=== PATIENT | male | born 1950 | race Caucasian/White ===

== ENCOUNTER → 2020-11-02 11:28 | Outpatient (CLI) | payer OTHER, SELFPAY ==
--- NOTE | ~2020-11-02 | XR_ITS ---
XR lumbar spine 2-3V 11/02/2020 11:43 Indication: Left-sided sciatica Procedure: 3 views lumbar spine Comparison: No prior studies for comparison. Findings: There is mild disc narrowing at L3-4, L4-5 and L5-S1. There is facet hypertrophy at L4-5 an d L5-S1. Slightly accentuated lumbar lordosis. Pedicles intact. Sacral foramen are symmetric. There i s diffuse atherosclerosis of the aorta. No acute fracture or traumatic malalignment. Impression: 1: Moderate lumbar spondylosis. Reviewed, dictated and finalized at location B. OGRAPHY TECHNICIAN Impression: 1: Moderate lumbar spondylosis.
== END ==
PROVIDERS: PCP Family Medicine; Visit Provider Nurse Practitioner Family
DX: M54.32 Sciatica, left side (principal); M47.816 Spondylosis without myelopathy or radiculopathy, lumbar region
CPT/HCPCS: 72100

== ENCOUNTER → 2020-11-29 07:26 | Outpatient (CLI) | payer OTHER, SELFPAY ==
--- NOTE | ~2020-11-29 | MR_ITS ---
EXAMINATION: MR lumbar spine wo [facility] EXAM DATE: 11/29/2020 08:19 INDICATION: Low back pain , left leg pain. TECHNIQUE: Multi-sequential, multiplanar MR images of the lumbar spine were obtained without contrast . Sagittal T1, T2, T2 fat saturation images. Axial T2 weighted images. There is no prior study for comparison. FINDINGS: The vertebral bodies are aligned in the AP dimension. Mild diffuse lumbar disc disease. The conus medullaris terminates at the T12 level and has normal signal intensity and morphology. There are no suspicious marrow signal abnormalities. Paraspinal soft tissue is unremarkable. Level by level evaluation: T12-L1: Disc does not extend beyond the endplate margin. Facet arthropathy: None. Neural foraminal stenosis: No stenosis. Central canal stenosis: No stenosis. L1-L2: Disc does not extend beyond the endplate margin. Facet arthropathy: None. Neural foraminal stenosis: No stenosis. Central canal stenosis: No stenosis. L2-L3: There is a mild diffuse disc bulge. Facet arthropathy: Mild. Neural foraminal stenosis: Mild bilateral. Central canal stenosis: Mild. L3-L4: There is a mild to moderate diffuse disc bulge. Facet arthropathy: Mild to moderate bilateral. Neural foraminal stenosis: Mild to moderate right, mild left. Central canal stenosis: Mild to moderate. L4-L5: There is a mild to moderate diffuse disc bulge, with annular fissure. Facet arthropathy: Mild to moderate bilateral. Neural foraminal stenosis: Mild to moderate right, moderate left. Central canal stenosis: Mild to moderate. L5-S1: There is a mild diffuse disc bulge with central annular fissure Facet arthropathy: Mild. Neural foraminal stenosis: No stenosis. Central canal stenosis: Mild. IMPRESSION: 1. Mild to moderate lumbar spondylosis. Reviewed, dictated and finalized at location B. ON EXPERT
== END ==
PROVIDERS: PCP Family Medicine; Visit Provider Orthopaedic Surgery
DX: M47.896 Other spondylosis, lumbar region (principal)
CPT/HCPCS: 72148

== ENCOUNTER 2021-07-09 15:39 | Outpatient (CLI) | payer OTHER, SELFPAY ==
--- NOTE | ~2021-07-09 | XR_ITS ---
EXAMINATION: XR hand LT 2V DATE: 07/09/2021 16:01 INDICATION: Left hand injury. TECHNIQUE: 2 views of left hand were obtained. COMPARISON: None. FINDINGS: There is an old healed fracture of the distal radius. 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 There is a transverse fracture of the scaphoid waist. There is mild osteoarthriti s of triscaphe joint and first carpometacarpal joint. There is mild osteoarthritis of first-third met acarpophalangeal joints and most of the interphalangeal joints. There are surgical clips in the dista l forearm. IMPRESSION: 1. Scaphoid waist fracture. Hypertrophy of bone in the area of the fracture suggests this finding may be chronic. 2. Mild polyarticular osteoarthritis. Reviewed, dictated and finalized at location A. IMPRESSION: 1. Scaphoid waist fracture. Hypertrophy of bone in the area of the fracture sug gests this finding may be chronic. 2. Mild polyarticular osteoarthritis.
== END 2021-07-09 15:40 | disposition home or self-care (01) ==
LOC: ANHIMG 15:43
PROVIDERS: PCP Family Medicine; Visit Provider Physician Assistant Medical
DX: S69.92XA Unspecified injury of left wrist, hand and finger(s), initial encounter (principal); S62.022A Displaced fracture of middle third of navicular [scaphoid] bone of left wrist, initial encounter for closed fracture; M19.042 Primary osteoarthritis, left hand
CPT/HCPCS: 73120

== ENCOUNTER 2021-09-27 09:45 | Outpatient (RCR) | payer OTHER, SELFPAY ==
[2021-08-14 15:42] VITALS: PULSE 64
[2021-08-15 14:35] LABS: Glucose Point of Care 170 mg/dl (65-105)
[2021-08-22 10:52] LABS: Glucose Point of Care 227 mg/dl (65-105)
[2021-08-29 12:12] LABS: Glucose Point of Care 81 mg/dl (65-105)
[2021-08-29 12:13] LABS: Glucose Point of Care 125 mg/dl (65-105)
[2021-09-06 11:23] LABS: Glucose Point of Care 179 mg/dl (65-105)
== END 2021-10-01 09:13 | disposition home or self-care (01) ==
LOC: ANHCPREHAB 09:45
PROVIDERS: PCP Family Medicine; Visit Provider Internal Medicine Cardiovascular Disease
DX: Z95.1 Presence of aortocoronary bypass graft (principal)
CPT/HCPCS: 93798

== ENCOUNTER 2022-09-09 13:00 | Emergency (ER) | payer OTHER, SELFPAY ==
--- NOTE | ~2022-09-09 | XR_ITS ---
Clinical Indication: Cough PA and lateral views of the chest: Comparison: None Findings: The lungs are clear, without evidence of focal consolidation or pleural effusion. Cardiome diastinal silhouette is within normal limits. Evidence of prior cardiac surgery. Bones and soft tissu es are unremarkable. Impression: Clear lungs. Reviewed, dictated and finalized at location . NICAL SERVICE REP Impression: Clear lungs.
[2022-09-09 13:12] VITALS: BP 164/60; PULSE 58; RESP 16; TEMP 35.9; O2SAT 99
--- NOTE | 2022-09-09 13:38 | ED.URI ---
HPI - URI/Sore Throat General Chief Complaint: Upper Respiratory Infection Stated Complaint: Cough Source: patient Mode of arrival: ambulatory Limitations: no limitations History of Present Illness HPI Narrative: 72-year-old male presents to [facility] with complaints of for active cough of thick yellow colored phlegm, nasal congestion sore throat for the past week. Patient reports that he saw his holistic medical provider Preeti Reece in [place], [place] 1 week ago who diagnosed him with influenza but he was not swabbed at that time. Patient reports that she prescribed him silver that he has been using his 's nebulizer. Patient reports that he coughed up a large amount of thick phlegm today so he comes here today as he is concerned about the continued cough and production of phlegm. Patient has not called his holistic medical provider back concerning ongoing symptoms. Patient is an ex-smoker. Patient denies shortness of breath, wheezing, nausea, vomiting or diarrhea. MD elicited complaint: sore throat and nasal congestion Onset (ago): week(s) (1) Able to tolerate fluids by mouth: Yes Related Data Home Medications Medication Instructions Recorded Confirmed aspirin 81 mg capsule 81 mg PO AC 08/14/21 09/09/22 triamterene 37.5 1 tablet PO QAM 08/23/21 09/09/22 mg-hydrochlorothiazide 25 mg tablet Allergies Allergy/AdvReac Type Severity Reaction Status Date / Time Penicillins Allergy Intermediate Unknown Verified 02/11/22 07:44 adhesive tape Allergy Hives Verified 02/11/22 07:44 morphine Allergy Vomiting Verified 02/11/22 07:44 rosuvastatin [From Crestor] AdvReac Irritable Verified 02/11/22 07:44 Review of Systems Constitutional: Constitutional: Denies chills, Denies fatigue, Denies fever(s) and Denies weakness ENT: Denies dizziness, Reports nasal congestion and Reports sore throat Cardiovascular: Cardiovascular: Denies chest pain Respiratory: Respiratory: Reports cough, Denies dyspnea and Denies wheezing Gastrointestinal: Gastrointestinal: Denies diarrhea, Denies nausea and Denies vomiting Integumentary/Breasts: Skin/Breast: Denies rash Neurologic: Denies dizziness and Denies syncope Allergic/Immunologic: Allergic/Immunologic: Denies throat swelling, Denies tongue swelling and Denies wheezing PMFSH Past Medical History Medical History BMI 25.0-25.9,adult BMI 26.0-26.9,adult BMI 27.0-27.9,adult BMI 28.0-28.9,adult BMI 28.0-28.9,adult Carotid stenosis Edema Hemoglobin A1C between 7% and 9% indicating borderline diabetic control reported by pt, 07/18/21 to be 7.1 History of alcoholism History of cataract History of CVA (cerebrovascular accident) Screening for prostate cancer Screening for prostate cancer Type 2 diabetes mellitus without complications Surgical History Surgical History History of carotid endarterectomy History of knee surgery History of open heart surgery History of rotator cuff surgery History of surgery on left wrist grafting of scaphoid fracture around 35 years ago Right carpal tunnel syndrome right carpal tunnel release Family History Family History Father Cancer Pulmonary disease Mother High cholesterol Hypertension Social History Social History Years smoked: 10 Smoking status: Former smoker Tobacco type: cigars Alcohol intake: former Gender identity (if verbalized by the patient): Male Comments At time of signature, I agree with nursing past medical, surgical, social and family history. There is no relevant family history pertinent to the presenting complaint. Exam Const: General: healthy appearing and no acute distress Nutritional Appearance: well nourished Orientation/consciousness: patient oriented x3 Limitations: no l
== END 2022-09-09 14:15 | disposition home or self-care (01) ==
PROVIDERS: Emergency Provider Nurse Practitioner Family; PCP Family Medicine
DX: J06.9 Acute upper respiratory infection, unspecified (principal); Z87.891 Personal history of nicotine dependence; Z86.73 Personal history of transient ischemic attack (TIA), and cerebral infarction without residual deficits; E11.9 Type 2 diabetes mellitus without complications; I65.29 Occlusion and stenosis of unspecified carotid artery; H26.9 Unspecified cataract; Z79.82 Long term (current) use of aspirin
CPT/HCPCS: 71046; 99213; G0463

== ENCOUNTER 2024-07-02 08:46 | Emergency (ER) | payer OTHER, SELFPAY ==
--- NOTE | 2024-07-02 08:48 | ED.SKABFB ---
HPI - Skin/Abscess/Foreign Bdy General Chief complaint: Skin/Abscess/Foreign Body Stated complaint: Insect Bite Time Seen by Provider: 07/02/24 09:03 Source: patient, RN notes reviewed and old records reviewed Mode of arrival: ambulatory Limitations: no limitations History of Present Illness HPI narrative: 74-year-old male presents to the [facility] with concerns for an insect bite. Patient reports night he was bit by something, believes it might have been a spider. States that it did wake him up. Had been cleaning it with peroxide as well as water and soap Friday started getting red. Yesterday developed a scab, redness. States that he pulled the scab off and it started draining. Comes in today with concerns of an infection. Patient is diabetic Patient does have history of hypertension. Does report he did take his medications today Denies any fevers. Full range of motion of the leg. Related Data Home Medications Medication Instructions Recorded Confirmed aspirin 81 mg capsule 81 mg PO DAILY 08/14/21 07/04/24 testosterone 10 mg/0.5 2 pump transdermal QAM 09/29/23 07/04/24 gram/actuation transdermal gel pump tirzepatide 5 mg/0.5 mL 5 mg subcut WEEKLY 09/29/23 07/04/24 subcutaneous pen injector (Monique) liothyronine 5 mcg tablet 5 mcg PO DAILY 07/02/24 07/04/24 amlodipine 5 mg tablet 5 mg PO DAILY 07/04/24 07/04/24 Allergies Allergy/AdvReac Type Severity Reaction Status Date / Time Penicillins Allergy Intermediate Unknown Verified 07/04/24 09:47 adhesive tape Allergy Hives Verified 07/04/24 09:47 morphine Allergy Vomiting Verified 07/04/24 09:47 rosuvastatin [From Crestor] AdvReac Irritable Verified 07/04/24 09:47 Review of Systems Review of Systems: All systems reviewed & are unremarkable except as noted in HPI and below Constitutional: Constitutional: Reports no additional constitutional complaints Eyes: Eyes: Reports no additional eye complaints ENT: Reports system reviewed and no additional complaints, except as documented Cardiovascular: Cardiovascular: Reports no additional cardiovascular complaints, Denies chest pain and Denies dyspnea Respiratory: Respiratory: Reports no additional respiratory complaints, Denies chest congestion, Denies cough and Denies dyspnea Gastrointestinal: Gastrointestinal: Reports no additional gastrointestinal complaints, Denies abdominal pain, Denies nausea and Denies vomiting Musculoskeletal: Musculoskeletal: Reports no additional musculoskeletal complaints Integumentary/Breasts: Skin/Breast: Reports as per HPI and Reports erythema Neurologic: Reports system reviewed and no additional complaints, except as documented Psychiatric: Psychiatric: Reports no additional psychiatric complaints Allergic/Immunologic: Allergic/Immunologic: Reports no additional allergic/immunologic complaints PMFSH Past Medical History Medical History BMI 25.0-25.9,adult BMI 26.0-26.9,adult BMI 27.0-27.9,adult BMI 28.0-28.9,adult BMI 28.0-28.9,adult Carotid stenosis Edema Hemoglobin A1C between 7% and 9% indicating borderline diabetic control reported by pt, 07/18/21 to be 7.1 History of alcoholism History of cataract History of CVA (cerebrovascular accident) History of GI bleed Hypertension Hypothyroidism Myocardial infarct Screening for prostate cancer Screening for prostate cancer Toenail deformity Type 2 diabetes mellitus without complications Surgical History Surgical History History of carotid endarterectomy History of knee surgery History of open heart surgery CABG x5v History of rotator cuff surgery History of surgery on left wrist grafting of scaphoid fracture around 35 years ago Right carpal tunnel syndrome right carpal tunnel release Family History Family History Father Cancer P
[2024-07-02 08:51] VITALS: BP 153/57; PULSE 58; RESP 19; TEMP 36.8; O2SAT 100
[2024-07-02] MEDS: LIDOCAINE HCL 1% LOCAL INJ 2 ML AMPUL 4 ML INFILTRATE (09:14)
== END 2024-07-02 09:50 | disposition home or self-care (01) ==
PROVIDERS: Emergency Provider Nurse Practitioner; PCP Family Medicine
DX: L02.415 Cutaneous abscess of right lower limb (principal); Z87.891 Personal history of nicotine dependence; I10 Essential (primary) hypertension; E03.9 Hypothyroidism, unspecified; E11.9 Type 2 diabetes mellitus without complications; Z86.73 Personal history of transient ischemic attack (TIA), and cerebral infarction without residual deficits; Z95.1 Presence of aortocoronary bypass graft; Z79.82 Long term (current) use of aspirin
CPT/HCPCS: 10060; 87070; 87075; 87181; 87205; 99213; G0463; J2003

== ENCOUNTER 2024-07-04 08:34 | Emergency (ER) | payer OTHER, SELFPAY ==
[2024-07-04 08:36] VITALS: BP 145/62; PULSE 57; RESP 18; TEMP 36.6; O2SAT 100
--- NOTE | 2024-07-04 08:55 | ED.WOUNDLAC ---
HPI - Wound/Laceration General Chief Complaint: Wound/Laceration Stated Complaint: Wound Check Time Seen by Provider: 07/04/24 09:00 Source: patient and RN notes reviewed Mode of arrival: ambulatory Limitations: dementia History of Present Illness HPI narrative: 74-year-old male presents with concern for worsening infection on his right thigh. Reports he was here on July 02, had the wound drained and was given clindamycin. He has been taking it as directed but symptoms are worsening. He reports he has had a headache and body aches. Related Data Home Medications Medication Instructions Recorded Confirmed aspirin 81 mg capsule 81 mg PO DAILY 08/14/21 07/04/24 testosterone 10 mg/0.5 2 pump transdermal QAM 09/29/23 07/04/24 gram/actuation transdermal gel pump tirzepatide 5 mg/0.5 mL 5 mg subcut WEEKLY 09/29/23 07/04/24 subcutaneous pen injector (Bienvenidounsantanaro) liothyronine 5 mcg tablet 5 mcg PO DAILY 07/02/24 07/04/24 amlodipine 5 mg tablet 5 mg PO DAILY 07/04/24 07/04/24 Allergies Allergy/AdvReac Type Severity Reaction Status Date / Time Penicillins Allergy Intermediate Unknown Verified 07/04/24 09:47 adhesive tape Allergy Hives Verified 07/04/24 09:47 morphine Allergy Vomiting Verified 07/04/24 09:47 rosuvastatin [From Crestor] AdvReac Irritable Verified 07/04/24 09:47 Review of Systems Review of Systems: CONSTITUTIONAL: Denies malaise, chills, sweats, or fever. EYES: Denies redness, or discharge. ENT: Denies rhinorrhea, congestion, swollen lips, swollen tongue CARDIOVASCULAR: Denies chest pain, palpitations, or edema. RESPIRATORY: Denies cough or dyspnea. GASTROINTESTINAL: Denies abdominal pain, nausea, vomiting SKIN: Reports redness, swelling, tenderness, warmth to the right thigh. Denies purulent drainage, vesicles, bullae, numbness, pain beyond proportion MUSCULOSKELETAL: Denies joint pain. Reports Myalgia. NEUROLOGIC: Reports headache. All systems reviewed & are unremarkable except as noted in HPI and below PMFSH Past Medical History Medical History (Updated 07/04/24 @ 14:08 by Elisabet Colorado NP) BMI 25.0-25.9,adult BMI 26.0-26.9,adult BMI 27.0-27.9,adult BMI 28.0-28.9,adult BMI 28.0-28.9,adult Carotid stenosis Edema Hemoglobin A1C between 7% and 9% indicating borderline diabetic control reported by pt, 07/18/21 to be 7.1 History of alcoholism History of cataract History of CVA (cerebrovascular accident) History of GI bleed Hypertension Hypothyroidism Screening for prostate cancer Screening for prostate cancer Toenail deformity Type 2 diabetes mellitus without complications Surgical History Surgical History History of carotid endarterectomy History of knee surgery History of open heart surgery History of rotator cuff surgery History of surgery on left wrist grafting of scaphoid fracture around 35 years ago Right carpal tunnel syndrome right carpal tunnel release Family History Family History Father Cancer Pulmonary disease Mother High cholesterol Hypertension Social History Social History Years smoked: 10 Smoking status: Former smoker Alcohol intake: former Substance use: never Do You Feel Safe in your Home?: Yes Lack of Transportation: No Lack of Food: Never True Current Housing: I Have Housing Concerned About Future Housing: No Difficulty Paying Gas/Electric Bills: No Difficulty Paying for Meds: No Currently Unemployed: No Education: High School Diploma/GED Difficulty w/ Childcare or Family Care: No Occupation/Education: retired Gender identity (if verbalized by the patient): Male Spiritual care concerns: No Comments At time of signature, agree with nursing past medical, surgical, social and family history. There is no relevant family history pertinent to the presenting complaint Exam Narrative: GENERAL: Well-appearing, well-nourished, and in no acute distress. HEAD: Normocephalic, atraumatic. EYES: PERRLA, conjunctivae clear ENT: Mucous membranes moist. NECK: Supple. No lymphadenopathy CHEST: Clear to auscultation. No respiratory distress. HEART: Regular rate and rhythm. SKIN: Warm, dry. Erythema, induration, tenderness, warmth with sharp margins noted to the right thigh. No vesicles, bullae, necrosis, ecchymosis, crepitus noted. NEURO: Alert and oriented x3. PSYCH: Normal mood and affect Course Course Emergency Course: Patient is aware of diagnosis, understands and agrees to treatment plan. Anticipatory guidance given. Patient agrees to follow-up as directed and is aware of reasons to seek care at the emergency department. Portions of this record may have been created with voice recognition software Level of Care: Express Care Visit Vital Signs Vital signs: Vital Signs Temperature 97.8 F 07/04/24 08:36 Pulse Rate 57 L 07/04/24 08:36 Respiratory Rate 18 07/04/24 08:36 Blood Pressure 145/62 H 07/04/24 08:36 Pulse Oximetry 100 07/04/24 08:36 Oxygen Delivery Room Air 07/04/24 08:36 Temperature 97.8 F 07/04/24 08:36 Pulse Rate 57 L 07/04/24 08:36 Respiratory Rate 18 07/04/24 08:36 Blood Pressure 145/62 H 07/04/24 08:36 Pulse Oximetry 100 07/04/24 08:36 Oxygen Delivery Room Air 07/04/24 08:36 Reviewed. Transfer Transfered to: [facility] Transportation: Other (Private vehicle) Transfer rationale: Worsening infection despite antibiotic Accepting physician: Dominguez MDM - Wound/Laceration MDM Narrative Medical decision making narrative: Patient's symptoms warrant for the evaluation emergency room Critical Care Time Critical Care Time Critical Care Time: No Discharge Plan Discharge Clinical Impression: Soft tissue infection Patient Disposition: Acute Care Hospital Condition: Stable Prescriptions: No Action liothyronine 5 mcg tablet 5 mcg PO DAILY clindamycin HCl 150 mg capsule 150 mg PO TID 10 Days Qty: 30 0RF Rx Instructions: Take with 300 mg capsule clindamycin HCl 300 mg capsule 300 mg PO TID 10 Days Qty: 30 0RF Rx Instructions: Take with 150 mg capsules (DME) pen needle, diabetic [BD Ultra-Fine Wendy Pen Needle] 32 gauge x 5/32 needle See Rx Instructions .Route Qty: 100 5RF Rx Instructions: As directed QAC and QHS and lantus QHS testosterone 10 mg/0.5 gram /actuation gel in metered-dose pump 2 pump transdermal QAM Rx Instructions: apply evenly over right forearm; avoid water for >=2 hrs Mounjaro 5 mg/0.5 mL pen injector 5 mg subcut WEEKLY Rx Instructions: aspirin 81 mg Capsule 81 mg PO DAILY amlodipine 5 mg tablet 5 mg PO DAILY (DME) blood-glucose meter [FreeStyle [place] Lite] Kit See Rx Instructions .Route Qty: 1 0RF Rx Instructions: As directed for diabetes (DME) FreeStyle Lite Strips Strip See Rx Instructions .Route Qty: 100 2RF Rx Instructions: Check glucose bid for diabetes (DME) lancets [FreeStyle Lancets] 28 gauge misc See Rx Instructions .Route Qty: 100 0RF Rx Instructions: check glucose bid for diabetes Follow-up/Referrals: Niall Whitaker MD [Primary Care Provider] -
== END 2024-07-04 09:08 | disposition short-term general hospital (02) ==
LOC: EXPCOLL 08:38
PROVIDERS: Emergency Provider Nurse Practitioner; PCP Family Medicine
DX: L08.9 Local infection of the skin and subcutaneous tissue, unspecified (principal); Z87.891 Personal history of nicotine dependence; I10 Essential (primary) hypertension; E03.9 Hypothyroidism, unspecified; E11.9 Type 2 diabetes mellitus without complications; Z79.82 Long term (current) use of aspirin
CPT/HCPCS: 99212; G0463

== ENCOUNTER 2024-07-04 09:32 | Observation (INO) | payer OTHER, SELFPAY ==
--- NOTE | ~2024-07-04 | US_ITS ---
EXAMINATION: US soft tissue LE RT DATE: 07/05/2024 16:08 INDICATION: Right thigh mass. TECHNIQUE: Multiple grayscale and Doppler ultrasound images of the right lower limb were obtained. COMPARISON: Right femur CT 07/04/2024 FINDINGS: There is no abnormal mass in the right thigh in the patient's area of concern. There is hyp erechoic subcutaneous fat in right thigh, consistent with inflammation. IMPRESSION: 1. Hyperechoic subcutaneous fat in right thigh, consistent with inflammation. No abscess or abnormal mass. Reviewed, dictated and finalized at location A. IMPRESSION: 1. Hyperechoic subcutaneous fat in right thigh, consistent with inflammation. N o abscess or abnormal mass.
--- NOTE | ~2024-07-04 | CT_ITS ---
CT OF right femur EXAMINATION: CT femur RT w con DATE: 07/04/2024 14:10 INDICATION: Abscess TECHNIQUE: Computed tomography (CT) of the right femur was performed without intravenous contrast. Au tomated exposure control and iterative reconstruction technique were employed. The dose-length produc t was 1039.03 mGy-cm. COMPARISON: None FINDINGS: Mild degenerative change in the right SI joint, right hip, and right knee. No fracture or dislocation . No lytic or blastic lesion. Moderate atherosclerotic calcification. Trace knee joint fluid. Prior s aphenous vein harvest. Severe short segment stenosis in the distal right femoral artery just proximal to the superficial and deep femoral bifurcation. Moderate short segment popliteal stenoses. Mild sub cutaneous edema in the thigh. No focal fluid collection. IMPRESSION: No abscess detected. Mild subcutaneous edema in the thigh. Severe right common femoral artery stenosi s. Reviewed, dictated and finalized at location K. IMPRESSION: No abscess detected. Mild subcutaneous edema in the thigh. Severe right common femoral artery stenosis.
[2024-07-04 09:43] VITALS: BP 156/70; PULSE 58; RESP 20; TEMP 36.9; O2SAT 99
--- NOTE | 2024-07-04 10:09 | ED.EXTPRO ---
HPI - Extremity Problem General Chief complaint: Extremity Problem,Nontraumatic Stated complaint: LEG INFECTION Time Seen by Provider: 07/04/24 10:03 Source: patient Mode of arrival: ambulatory History of Present Illness HPI Narrative: patient workup 7 days ago with a skin lesion at the front of the right thigh, high likely unknown insect bite was slightly itchy at that time, denies any other symptoms. Two days later started getting worse, more red, more spread, with severe tenderness, started on clindamycin by urgent care 5 days ago. Patient is telling me that his symptoms are getting worse. History of diabetes. He denies any fever, chills, nausea, vomiting. Related Data Home Medications Medication Instructions Recorded Confirmed aspirin 81 mg capsule 81 mg PO AC 08/14/21 07/04/24 triamterene 37.5 1 tablet PO QAM 08/23/21 07/04/24 mg-hydrochlorothiazide 25 mg tablet progesterone 50 mg/mL 50 mg IM DIRECTED 09/29/23 07/04/24 intramuscular oil testosterone 10 mg/0.5 2 pump transdermal QAM 09/29/23 07/04/24 gram/actuation transdermal gel pump tirzepatide 5 mg/0.5 mL 5 mg subcut WEEKLY 09/29/23 07/04/24 subcutaneous pen injector (Mounsantanaro) liothyronine 5 mcg tablet 5 mcg PO DAILY 07/02/24 07/04/24 Allergies Allergy/AdvReac Type Severity Reaction Status Date / Time Penicillins Allergy Intermediate Unknown Verified 07/04/24 09:47 adhesive tape Allergy Hives Verified 07/04/24 09:47 morphine Allergy Vomiting Verified 07/04/24 09:47 rosuvastatin [From Crestor] AdvReac Irritable Verified 07/04/24 09:47 Review of Systems Review of Systems: All systems reviewed & are unremarkable except as noted in HPI and below PMFSH Past Medical History Medical History BMI 25.0-25.9,adult BMI 26.0-26.9,adult BMI 27.0-27.9,adult BMI 28.0-28.9,adult BMI 28.0-28.9,adult Carotid stenosis Edema Hemoglobin A1C between 7% and 9% indicating borderline diabetic control reported by pt, 10/27/21 to be 7.1 History of alcoholism History of cataract History of CVA (cerebrovascular accident) History of GI bleed Screening for prostate cancer Screening for prostate cancer Toenail deformity Type 2 diabetes mellitus without complications Surgical History Surgical History History of carotid endarterectomy History of knee surgery History of open heart surgery History of rotator cuff surgery History of surgery on left wrist grafting of scaphoid fracture around 35 years ago Right carpal tunnel syndrome right carpal tunnel release Family History Family History Father Cancer Pulmonary disease Mother High cholesterol Hypertension Social History Social History (Reviewed 07/04/24 @ 11: by Shad Trejo MD) Years smoked: 10 Smoking status: Former smoker Tobacco type: cigars Alcohol intake: former Occupation/Education: retired Gender identity (if verbalized by the patient): Male Exam Narrative: General appearance: Well-developed, well-nourished Skin: Normal color Head: Normocephalic, nontraumatic Eyes: Clear conjunctiva ENT: Oropharynx normal, ears normal, nose normal Neck: Supple, nontender Chest and respiratory: Airway patent, no respiratory distress, no accessory muscle use Heart: Regular rate/rhythm Abdomen: Soft, nontender, no organomegaly, quiet bowel sounds Vascular: Normal peripheral pulses, normal capillary refill. Musculoskeletal: Right thigh showed 15 x 20 cm erythema, with 3 mm opening in the center of it leaking serous sinus discharge, warm, tender, no fluctuation. Neurologic: Alert and oriented ?3, DIRECTOR FINANCIAL SERVICES is normal as tested, no gross motor deficit
[2024-07-04 10:39] LABS: Basophils Absolute Auto 0.1 K/mm3 (0.0-0.1); Eosinophils Absolute Auto 0.2 K/mm3 (0-0.3); Eosinophils Percent Auto 3.5 % (0-4.4); Hematocrit 37.5 % (42.0-52.0); Hemoglobin 12.7 g/dL (14.0-18.0); Immature Granulocyte Absolute 0.04 K/mm3 (0.00-0.031); Immature Granulocyte Percent A 0.6 % (0-0.5); Lymphocytes Absolute Auto 1.42 K/mm3 (0.9-3.2); Lymphocytes Percent Auto 20.9 % (18.3-44.2); Mean Corpuscular HGB Conc 33.9 g/dl (32-36); Mean Corpuscular Hemoglobin 31.3 pg (26-34); Mean Corpuscular Volume 92.4 fl (80-100); Mean Platelet Volume 9.4 fl (7.4-10.4); Monocytes Absolute Auto 0.8 K/mm3 (0.1-0.6); Monocytes Percent Auto 11.5 % (2.6-8.5); Neutrophils Absolute Auto 4.2 K/mm3 (1.3-6.7); Neutrophils Percent Auto 62.5 % (45.5-73.1); Platelet Count Result 236 k/mm3 (150-375); Red Blood Count 4.06 M/mm3 (4.6-6.20); Red Cell Distribution Width 12.9 % (11.5-14.5); White Blood Count 6.8 K/mm3 (4.5-10.0)
[2024-07-04 10:51] LABS: Alanine Aminotransferase 15 U/L (6-50); Albumin Level 4.3 g/dL (3.5-5.1); Alkaline Phosphatase 89 U/L (38-126); Anion Gap 8 mmol/L (4-12); Aspartate Amino Transferase 30 U/L (17-59); Bilirubin,Total 0.5 mg/dL (0.2-1.3); Blood Urea Nitrogen 18 mg/dL (9-20); CRP 2.2 mg/dL (<1.0); Calcium 9.3 mg/dL (8.4-10.2); Carbon Dioxide 28 mmol/L (22-30); Chloride 99 mmol/L (98-107); Estimated CRCL calculation 61 ml/min; Estimated Glomerular Filt Rate > 60; Glucose 150 mg/dL (65-110); Potassium 4.2 mmol/L (3.4-5.0); Sodium 135 mmol/L (137-145)
[2024-07-04] MEDS: VANCOMYCIN 1,500 MG/NS 500 ML 1,500 MG/500 ML BAG 250 MG IVPB (11:29)
[2024-07-04 11:59] VITALS: BMI 27.7
--- NOTE | 2024-07-04 12:16 | PM.IMHP ---
H&P: HPI History of Present Illness Date/Time: 07/04/24 12:16 Chief Complaint: cellulitis Narrative: This is a 74 year old male with a significant past medical history of multiple CVA's, type 2 diabetes mellitus, hypertension, hypothyroidism, NC with 99% blockage to LAD requiring 5v CABG, former smoker who presented to the hospital for evaluation of cellulitis. Patient originally presented to the [facility] on 07/02/24 with abscess from an insect bite. At the [facility] he underwent an I and D of the abscess and successfully had 15-20ml of purulent drainage expressed. A culture was sent at that time. He was sent home with a prescription for clindamycin 450 mg daily. Patient states the redness and tenderness has worsened over the last two days despite oral antibiotics since . He denies any fever, chills, nausea, vomiting, diarrhea, abdominal pain, chest pain, or shortness of breath. He endorses tenderness and redness at the site. He presents today for further evaluation. Work up in the ER included labs which shown a normal WBC of 6.8, Hgb 12.7, Na+ 135, CRP 2.2. Wound cultures from 07/02/24 visit showing staphylococcus aureus on preliminary read. Blood cultures were obtained today. CT of the femur with contrast did not show any abscess or fluid collection, only shown mild subcutaneous edema in the thigh, severe right common femoral artery stenosis. Patient was given a dose of Tylenol and Vancomycin while in the ER. Review of Systems Review of Systems: All systems reviewed & are unremarkable except as noted in HPI and below Constitutional: Constitutional: Reports as per HPI and Reports no additional constitutional complaints Eyes: Eyes: Reports as per HPI and Reports no additional eye complaints ENT: Reports system reviewed and no additional complaints, except as documented and Reports as per HPI Cardiovascular: Cardiovascular: Reports as per HPI and Reports no additional cardiovascular complaints Respiratory: Respiratory: Reports as per HPI and Reports no additional respiratory complaints Gastrointestinal: Gastrointestinal: Reports as per HPI and Reports no additional gastrointestinal complaints Genitourinary: Genitourinary: Reports no additional male genitourinary complaints and Reports as per HPI Musculoskeletal: Musculoskeletal: Reports no additional musculoskeletal complaints and Reports as per HPI Integumentary/Breasts: Skin/Breast: Reports system reviewed and no additional complaints, except as docu and Reports as per HPI Neurologic: Reports system reviewed and no additional complaints, except as documented and Reports as per HPI Psychiatric: Psychiatric: Reports no additional psychiatric complaints and Reports as per HPI [facility] Past Medical History Medical History BMI 25.0-25.9,adult BMI 26.0-26.9,adult BMI 27.0-27.9,adult BMI 28.0-28.9,adult BMI 28.0-28.9,adult Carotid stenosis Edema Hemoglobin A1C between 7% and 9% indicating borderline diabetic control reported by pt, 07/18/21 to be 7.1 History of alcoholism History of cataract History of CVA (cerebrovascular accident) History of GI bleed Hypertension Hypothyroidism Myocardial infarct Screening for prostate cancer Screening for prostate cancer Toenail deformity Type 2 diabetes mellitus without complications Surgical History Surgical History History of carotid endarterectomy History of knee surgery History of open heart surgery CABG x5v History of rotator cuff surgery History of surgery on left wrist grafting of scaphoid fracture around 35 years ago Right carpal tunnel syndrome right carpal tunnel release Family History Family History Father Cancer Pulmonary disease Mother High cholesterol Hypertension Social History Social History (Reviewed 07/04/24 @ 16:07 by Clarita Boyer
--- NOTE | 2024-07-04 12:20 | ADMGEN ---
This patient, Jose Guadalupe Hutchinson, was admitted to [facility] Surg Room 315-01. Patient/family oriented to hospital policies and general routines including ID bracelet, bed and alarms, visiting hours, pain management, procedures, bathroom and other care routines, personal items, smoking policy, room service/diet, and visiting hours. Information on how to activate the Rapid Response Team has been discussed. Patient/Family are encouraged to report perceived risks to care and to ask questions if they do not understand what they are told or what they should do.
--- NOTE | 2024-07-04 13:30 | PHAR ---
RX [id number] LABELED TO CONTAIN NONFORMULARY DRUG (Testosterone ALF MICRONIZED LIQUID 100MG/GM metered-dose pump) [facility] [phone]
[2024-07-04 13:32] LABS: Hemoglobin A1C 7.3 % (<5.7)
[2024-07-04 15:56] VITALS: BP 140/73; PULSE 97; RESP 18; TEMP 37.2; O2SAT 100
[2024-07-04 16:27] LABS: Glucose Point of Care 148 mg/dl (65-105)
[2024-07-04 21:50] VITALS: BP 166/68; PULSE 73; RESP 18; TEMP 37.3; O2SAT 95
[2024-07-05 02:28] LABS: Glucose Point of Care 158 mg/dl (65-105)
[2024-07-05] MEDS: VANCOMYCIN 1,500 MG/NS 500 ML 1,500 MG/500 ML BAG 250 MG IVPB (04:57)
[2024-07-05 05:59] VITALS: BP 124/57; PULSE 57; RESP 16; TEMP 36.8; O2SAT 98
[2024-07-05 06:55] LABS: Basophils Absolute Auto 0.1 K/mm3 (0.0-0.1); Basophils Percent Auto 1.4 % (0.2-1.2); Eosinophils Absolute Auto 0.3 K/mm3 (0-0.3); Eosinophils Percent Auto 4.2 % (0-4.4); Hematocrit 34.6 % (42.0-52.0); Hemoglobin 11.7 g/dL (14.0-18.0); Immature Granulocyte Absolute 0.05 K/mm3 (0.00-0.031); Immature Granulocyte Percent A 0.7 % (0-0.5); Lymphocytes Absolute Auto 1.46 K/mm3 (0.9-3.2); Lymphocytes Percent Auto 21.1 % (18.3-44.2); Mean Corpuscular HGB Conc 33.8 g/dl (32-36); Mean Corpuscular Hemoglobin 31.5 pg (26-34); Mean Platelet Volume 9.1 fl (7.4-10.4); Monocytes Absolute Auto 0.8 K/mm3 (0.1-0.6); Monocytes Percent Auto 11.7 % (2.6-8.5); Neutrophils Absolute Auto 4.2 K/mm3 (1.3-6.7); Neutrophils Percent Auto 60.9 % (45.5-73.1); Platelet Count Result 235 k/mm3 (150-375); Red Blood Count 3.72 M/mm3 (4.6-6.20); Red Cell Distribution Width 12.8 % (11.5-14.5); White Blood Count 6.9 K/mm3 (4.5-10.0)
[2024-07-05 07:05] LABS: Alanine Aminotransferase 16 U/L (6-50); Albumin Level 3.6 g/dL (3.5-5.1); Alkaline Phosphatase 87 U/L (38-126); Anion Gap 4 mmol/L (4-12); Aspartate Amino Transferase 30 U/L (17-59); Bilirubin,Total 0.2 mg/dL (0.2-1.3); Blood Urea Nitrogen 21 mg/dL (9-20); Calcium 8.5 mg/dL (8.4-10.2); Carbon Dioxide 27 mmol/L (22-30); Chloride 104 mmol/L (98-107); Estimated CRCL calculation 68 ml/min; Estimated Glomerular Filt Rate > 60; Glucose 170 mg/dL (65-110); Potassium 4.2 mmol/L (3.4-5.0); Sodium 135 mmol/L (137-145)
[2024-07-05 08:10] LABS: Glucose Point of Care 162 mg/dl (65-105)
[2024-07-05 08:47] VITALS: O2SAT 97
[2024-07-05] MEDS: amLODIPine BESYLATE 5 MG TABLET PO (09:00)
[2024-07-05] MEDS: LIOTHYRONINE SODIUM 5 MCG TABLET PO (09:00)
[2024-07-05] MEDS: ASPIRIN 81 MG ENTERIC TABLET PO (09:00)
[2024-07-05 12:00] LABS: Glucose Point of Care 150 mg/dl (65-105)
--- NOTE | 2024-07-05 12:03 | PC.NURSE ---
On 07/05/24, the student, [Shannan Mercado ], provided care and completed [facility] documentation on this patient. I have reviewed the student's documentation and agree with the findings.
--- NOTE | 2024-07-05 14:27 | PM.IMPN ---
Progress Note: A&P Assessment and Plan (1) Cellulitis of right lower extremity: Code(s): L03.115 - Cellulitis of right lower limb Status: Acute Assessment and Plan: Patient suspected insect bite but does not recall seeing an insect. Recently evaluated at [facility] on 07/02/24 and had I and D done. He was sent home on Clindamycin but had increasing redness and swelling. Culture 07/02 grew MSSA. Patient has an allergy to penicillin, caused a rash 50 years ago. He is unsure if he has ever taken cephalosporins Started vancomycin in the ER. WBC 6.8, CRP 2.2. Changed to Ancef today since no cross reaction to penicillins. 07/04 CT of right femur with contrast did not show any fluid collection or abscess, mild subcutaneous edema in the thigh. US fluid collection, surgery consult 07/05 Soft tissue US Hyperechoic subcutaneous fat in right thigh, consistent with inflammation. No abscess or abnormal mass PLAN Suspect abscess. Was draining overnight and stopped, indurated. Significant erythema and induration on exam, may need I&D Surgery consult, may need I&D if worsening Change Vancomycin to Ancef today consider trial of Augmentin prior to discharge to test penicillin allergy blood cultures pending 07-04 no growth to date (2) Femoral artery stenosis, right: Code(s): I70.201 - Unspecified atherosclerosis of [place] arteries of extremities, right leg Status: Acute Assessment and Plan: CT of the right femur shown severe right common femoral artery stenosis, incidental finding No active signs/symptoms of ischemia Will need follow up with Vascular surgery, they have scheduled an appointment on Friday (3) Diabetes type 2, uncontrolled: Qualifiers: Glycemic state: with hyperglycemia Qualified Code(s): E11.65 - Type 2 diabetes mellitus with hyperglycemia Code(s): E11.65 - Type 2 diabetes mellitus with hyperglycemia Status: Acute Assessment and Plan: Blood sugars above goal in the setting of infection, ranging 150-193. Hemoglobin A1c on 10/02/2023 was 7.7. 07/04/24 7.3 Accu checks AC/HS Moderate dose SSI ordered hypoglycemic protocol in place Diabetic diet ordered Hold metformin (4) Hypertension: Code(s): I10 - Essential (primary) hypertension Status: Acute Assessment and Plan: Home med: Amlodipine 5mg daily Blood pressure above goal in the setting of pain, 124-166/57-73 continue amlodipine 5mg pain control avoid changing meds for discharge since only intermittently elevated given risk of hypotension when pain controlled (5) Hypothyroidism: Code(s): E03.9 - Hypothyroidism, unspecified Status: Acute Assessment and Plan: Home med: Liothyronine sodium 5mcg --Continue home med Time Spent With Patient Time: 63 minutes Subjective Date/time seen: 07/05/24 14:27 Interval history: No fever or chills, overall able to ambulate more, moderate erythema and induration present to thigh, possibly increasing induration Suspect phlegmon and possible abscess, erythema and induration present. Patient reports area was draining and has since stopped, now has increased induration .CT yesterday and Ultrasound today showed inflammation, but no clear fluid collection at this point. Exam Narrative: General: In no acute distress, well nourished Head: atraumatic, no encephalopathy Eyes: EOMI, PERRLA, sclera clear ENT: moist mucous membranes, nasal passages clear Neck: supple, no JVD, no adenopathy, trachea midline Cardiac: Normal S1 and S2. No murmur, gallops or friction rubs, peripheral pulses palpable and intact. Respiratory: Lungs clear to auscultation, no adventitious lung sounds, currently on room air Gastrointestinal: soft, non-distended, non-tender, normoactive bowel sounds. : voiding without difficulty. Extremities: moves all extremities well, no edema, good ROM, strength 5/5. Skin: right anterior thigh lesion hard and bear
--- NOTE | 2024-07-05 15:47 | PM.CNGS ---
Assessment and Plan Assessment and plan (1) Cellulitis of right lower extremity: Code(s): L03.115 - Cellulitis of right lower limb Status: Acute Assessment and Plan: There is an area of cellulitis in the right upper lateral leg. He had an abscess in this area that was drained in Urgent Care 3 days ago and the incision is now closed. There is no purulent drainage on my exam and the area is mostly indurated. No obvious fluctuance on exam. CT on admission showed no evidence of an abscess. Soft tissue ultrasound ordered today, will await these results. If there is evidence of an abscess on ultrasound, then we will proceed with incision and drainage tomorrow. Will make him NPO after midnight in case surgery is indicated. If there is no findings of an abscess, then we would recommend to continue antibiotics and monitor. (2) Femoral artery stenosis, right: Code(s): I70.201 - Unspecified atherosclerosis of [place] arteries of extremities, right leg Status: Acute Assessment and Plan: Patient aware of his peripheral vascular disease and is established with a vascular surgeon, who he was scheduled to see for the femoral artery stenosis next Friday as an outpatient. Denies any claudication. Agree with referral to vascular surgery as an outpatient. (3) Diabetes type 2, uncontrolled: Qualifiers: Glycemic state: with hyperglycemia Qualified Code(s): E11.65 - Type 2 diabetes mellitus with hyperglycemia Code(s): E11.65 - Type 2 diabetes mellitus with hyperglycemia Status: Acute (4) History of CVA (cerebrovascular accident): Code(s): Z86.73 - Personal history of transient ischemic attack (TIA), and cerebral infarction without residual deficits Status: Acute (5) Carotid stenosis: Qualifiers: Laterality: unspecified laterality Qualified Code(s): I65.29 - Occlusion and stenosis of unspecified carotid artery Code(s): I65.29 - Occlusion and stenosis of unspecified carotid artery Status: Acute Assessment and Plan: S/p bilateral carotid endarterectomy (6) EDWINA on CPAP: Code(s): G47.33 - Obstructive sleep apnea (adult) (pediatric); Z99.89 - Dependence on other enabling machines and devices Status: Acute Plan I have discussed the patient's case and plan of care with Dr. Swanson. Thank you for allowing us to see the patient in consultation and we will continue to follow along with you. History of Present Illness Consult details Consult date: 07/05/24 Reason for consult: other (Possible thigh abscess) Requesting physician: Zunilda Jack APRN Narrative: This is a 74-year-old man with a history of type 2 diabetes, coronary artery disease, peripheral vascular disease, and multiple other medical problems, who we have been consulted to see in surgical evaluation for a possible right thigh abscess. He reports about 2 weeks ago noticing a pimple like area on his right lateral thigh. He was staying in a cabin in the [place] and initially thought that he was bit by something. He does not recall feeling a bite or seeing anything bite him. Over the next week, the area became more red, tender, and swollen. Last Friday, his son squeeze the area and expressed a large amount of purulence drainage. He continued to have drainage and swelling with pain in this area and decided to go to an urgent care last Friday. They did an incision and drainage and discharge him with clindamycin. He reports taking this as prescribed without any improvement in his symptoms. He reports new swelling and redness going up his leg proximally and laterally, which is why he presented back to the urgent care yesterday. They directed him to the ED for evaluation. Labs showed a white blood cell count 6800. His blood sugar was 150 and hemoglobin A1c was 7.3. He had a CT of the right femur with contrast that showed no abscess, but mild subcutaneous edema in the thigh. Also noted was severe righ
[2024-07-05 15:49] VITALS: BP 143/68; PULSE 70; RESP 20; TEMP 35.7; O2SAT 98
[2024-07-05 16:00] VITALS: BP 130/74; PULSE 86; RESP 20; TEMP 36.7; O2SAT 96
[2024-07-05 16:42] LABS: Glucose Point of Care 177 mg/dl (65-105)
[2024-07-05 20:18] LABS: Glucose Point of Care 149 mg/dl (65-105)
[2024-07-05 20:30] VITALS: BP 150/70; PULSE 64; RESP 16; TEMP 36.8; O2SAT 97
[2024-07-05 21:00] VITALS: O2SAT 97
[2024-07-05] MEDS: ceFAZolin 2 GM/D5W 50 ML 2 GM/50 ML BAG IVPB (21:09)
[2024-07-06 05:00] VITALS: BP 136/67; PULSE 55; RESP 14; TEMP 36.4; O2SAT 97
[2024-07-06] MEDS: ceFAZolin 2 GM/D5W 50 ML 2 GM/50 ML BAG IVPB ×3 (05:30→21:21)
[2024-07-06 06:45] LABS: Basophils Absolute Auto 0.1 K/mm3 (0.0-0.1); Basophils Percent Auto 1.4 % (0.2-1.2); Eosinophils Absolute Auto 0.4 K/mm3 (0-0.3); Eosinophils Percent Auto 5.5 % (0-4.4); Hematocrit 39.7 % (42.0-52.0); Hemoglobin 13.2 g/dL (14.0-18.0); Immature Granulocyte Absolute 0.06 K/mm3 (0.00-0.031); Immature Granulocyte Percent A 0.9 % (0-0.5); Lymphocytes Absolute Auto 1.58 K/mm3 (0.9-3.2); Lymphocytes Percent Auto 22.5 % (18.3-44.2); Mean Corpuscular HGB Conc 33.2 g/dl (32-36); Mean Corpuscular Hemoglobin 30.6 pg (26-34); Mean Corpuscular Volume 91.9 fl (80-100); Mean Platelet Volume 9.3 fl (7.4-10.4); Monocytes Absolute Auto 0.8 K/mm3 (0.1-0.6); Monocytes Percent Auto 11.8 % (2.6-8.5); Neutrophils Absolute Auto 4.1 K/mm3 (1.3-6.7); Neutrophils Percent Auto 57.9 % (45.5-73.1); Platelet Count Result 297 k/mm3 (150-375); Red Blood Count 4.32 M/mm3 (4.6-6.20); Red Cell Distribution Width 12.5 % (11.5-14.5)
[2024-07-06 06:56] LABS: Alanine Aminotransferase 15 U/L (6-50); Albumin Level 3.9 g/dL (3.5-5.1); Alkaline Phosphatase 100 U/L (38-126); Anion Gap 10 mmol/L (4-12); Aspartate Amino Transferase 28 U/L (17-59); Bilirubin,Total 0.4 mg/dL (0.2-1.3); Blood Urea Nitrogen 18 mg/dL (9-20); Calcium 9.1 mg/dL (8.4-10.2); Carbon Dioxide 24 mmol/L (22-30); Chloride 103 mmol/L (98-107); Estimated CRCL calculation 61 ml/min; Estimated Glomerular Filt Rate > 60; Glucose 160 mg/dL (65-110); Potassium 4.2 mmol/L (3.4-5.0); Sodium 137 mmol/L (137-145)
[2024-07-06 08:00] VITALS: BP 150/72; PULSE 65; RESP 20; TEMP 36.1; O2SAT 100
--- NOTE | 2024-07-06 08:40 | PM.IMPN ---
Progress Note: A&P Assessment and Plan (1) Cellulitis of right lower extremity: Code(s): L03.115 - Cellulitis of right lower limb Status: Acute Assessment and Plan: Patient suspected insect bite but does not recall seeing an insect. Recently evaluated at [facility] on 07/02/24 and had I and D done. He was sent home on Clindamycin but had increasing redness and swelling. Culture 07/02 grew MSSA. Patient has an allergy to penicillin, caused a rash 50 years ago. He is unsure if he has ever taken cephalosporins Started vancomycin in the ER. WBC 6.8, CRP 2.2. Changed to Ancef today since no cross reaction to penicillins. 07/04 CT of right femur with contrast did not show any fluid collection or abscess, mild subcutaneous edema in the thigh. US fluid collection, surgery consult 07/05 Soft tissue US Hyperechoic subcutaneous fat in right thigh, consistent with inflammation. No abscess or abnormal mass PLAN Suspect abscess. Was draining overnight and stopped, but has been improving with IV ancef overnight Significant erythema and induration on exam inproving. Surgery consulted, does not need surgery at this point. Changed Vancomycin to Ancef 07/05. Discussed trial of Augmentin prior to discharge to test penicillin allergy with patient, but he did not wish to do that this admission. Could consider outpatient testing with allergy, per PCP. Likely discharge tomorrow with doxycycline or linezolid Alternate options: If he discharges with bactrim will have to monitor potassium (was hyperkalemic earlier in the year). Or could resume clindamycin but wasn't improving on it, although MSSA on staph screen blood cultures pending 07-04 no growth to date (2) Femoral artery stenosis, right: Code(s): I70.201 - Unspecified atherosclerosis of [place] arteries of extremities, right leg Status: Acute Assessment and Plan: CT of the right femur shown severe right common femoral artery stenosis, incidental finding No active signs/symptoms of ischemia Will need follow up with Vascular surgery, patient has an appointment scheduled on Friday. (3) Diabetes type 2, uncontrolled: Qualifiers: Glycemic state: with hyperglycemia Qualified Code(s): E11.65 - Type 2 diabetes mellitus with hyperglycemia Code(s): E11.65 - Type 2 diabetes mellitus with hyperglycemia Status: Acute Assessment and Plan: Blood sugars above goal in the setting of infection, ranging 150-193. Hemoglobin A1c on 10/02/2023 was 7.7. 07/04/24 7.3 Accu checks AC/HS Moderate dose SSI ordered hypoglycemic protocol in place Diabetic diet ordered Hold metformin, resume at discharge (4) Hypertension: Code(s): I10 - Essential (primary) hypertension Status: Acute Assessment and Plan: Home med: Amlodipine 5mg daily Blood pressure above goal in the setting of pain, 124-166/57-73 continue amlodipine 5mg pain control avoid changing meds for discharge since only intermittently elevated given risk of hypotension when pain controlled, defer to PCP (5) Hypothyroidism: Code(s): E03.9 - Hypothyroidism, unspecified Status: Acute Assessment and Plan: Home med: Liothyronine sodium 5mcg --Continue home med Time Spent With Patient Time: 59 minutes Subjective Date/time seen: 07/06/24 17:45 Interval history: No fever or chills. Induration improving overnight and during the day. Likely discharge tomorrow with oral antibiotics if improved. Has an allergy to penicillins but tolerating ancef. Does not wish to test penicillin allergy during admission Exam Narrative: General: In no acute distress, well nourished Head: atraumatic, no encephalopathy Eyes: EOMI, PERRLA, sclera clear ENT: moist mucous membranes, nasal passages clear Neck: supple, no JVD, no adenopathy, trachea midline Cardiac: Normal S1 and S2. No murmur, gallops or friction rubs, peripheral pulses palpable and intact. Respiratory
[2024-07-06] MEDS: LIOTHYRONINE SODIUM 5 MCG TABLET PO (08:49)
[2024-07-06] MEDS: ASPIRIN 81 MG ENTERIC TABLET PO (08:49)
[2024-07-06] MEDS: amLODIPine BESYLATE 5 MG TABLET PO (08:49)
[2024-07-06 11:39] LABS: Glucose Point of Care 156 mg/dl (65-105)
[2024-07-06 12:05] LABS: Glucose Point of Care 129 mg/dl (65-105)
--- NOTE | 2024-07-06 13:11 | PM.PNGS ---
Progress Note: A&P Assessment and Plan (1) Cellulitis of right lower extremity: Code(s): L03.115 - Cellulitis of right lower limb Status: Acute Assessment and Plan: Cellulitis improving. CT and US negative for abscess. No indication for surgery at this time. Okay to transition to oral antibiotics and discharge when okay with primary service. Plan I have discussed the patient's case and plan of care with Dr. Swanson. Subjective Subjective Date/Time Seen: 07/06/24 13:11 Patient reports: no new complaints, feels better and afebrile Interval history: Patient reports pain and swelling to right lateral thigh is better today. No new complaints. No drainage. Exam Const: General: comfortable and no acute distress Skin: Other: Right lateral thigh erythema and induration improved. No purulent drainage. Less tender. Objective Data Vital Signs Vital Signs: Vital Signs - 24 hr 07/05/24 15:49 07/05/24 16:00 07/05/24 20:30 Temperature 96.2 F L 98.1 F 98.2 F Pulse Rate 70 86 64 Respiratory Rate 20 20 16 Blood Pressure 143/68 H 130/74 150/70 H Pulse Oximetry 98 96 97 07/05/24 21:00 07/06/24 05:00 07/06/24 08:00 Temperature 97.6 F 96.5 F L Pulse Rate 55 L 90 Respiratory Rate 14 28 H Blood Pressure 136/67 125/72 Pulse Oximetry 97 97 97 Intake/Output Intake/Output: Intake & Output 07/03/24 07/04/24 07/05/24 07/06/24 23:59 23:59 23:59 23:59 Intake Total 1490 1820 50 Balance 1490 1820 50 Meds/Results Medications: Active Medications Generic Name Dose Route Start Last Admin Trade Name Freq PRN Reason Stop Dose Admin Acetaminophen 650 mg 07/04/24 11:10 Acetaminophen 325 Mg Tablet PO Q4H PRN Mild Pain (1-3) or Fever Amlodipine Besylate 5 mg 07/05/24 09:00 07/06/24 08:49 Amlodipine Besylate 5 Mg Tablet PO 5 mg DAILY JOHNNY Administration Aspirin 81 mg 07/05/24 09:00 07/06/24 08:49 Aspirin 81 Mg Enteric Tablet PO 81 mg QAM JOHNNY Administration Calcium Carbonate 200 mg 10/13/24 21:46 Calcium Carbonate (Tums) 500 Mg (200 Mg Elemental) PO Q6H PRN Indigestion Dextrose 12.5 gm 07/04/24 12:43 Dextrose 50% 25 Gm/50 Ml Syringe IV PUSH PRN PRN Hypoglycemia Protocol Glucagon 1 mg 07/04/24 12:43 Glucagon For Inj 1 Mg Vial IM PRN PRN Hypoglycemia Protocol Glucose 15 gm 07/04/24 12:43 Glucose Oral Gel 15 Gm Of Glucse In 37.5 Gm Tube PO PRN PRN Hypoglycemia Protocol Dextrose 1,000 mls @ 100 mls/hr 07/04/24 12:43 Dextrose 5% 1,000 Ml IVPB PRN PRN Hypoglycemia Protocol Cefazolin Sodium 2 gm in 50 mls @ 100 mls/hr 07/05/24 22:00 07/06/24 06:00 Ancef 2 Gm/D5w 50 Ml IVPB Infused Q8H JOHNNY Infusion Insulin Aspart 3 - 6 units 07/04/24 17:00 07/05/24 19:03 Insulin Aspart (*Bkc) 100 Units/Ml SUB-Q Not Given [facility] Protocol Insulin Aspart 1 - 3 units 07/04/24 21:00 07/05/24 20:48 Insulin Aspart (*Bkc) 100 Units/Ml SUB-Q Not Given HS [facility] Protocol Liothyronine Sodium 5 mcg 07/05/24 09:00 07/06/24 08:49 Liothyronine Sodium 5 Mcg Tablet PO 5 mcg DAILY JOHNNY Administration Nonformulary Drug ( 2 pump 07/05/24 09:00 07/05/24 19:05 Testosterone Half-Way TOPICAL 08/04/24 08:59 Not Given Micronized Liquid QAM JOHNNY 100mg/Gm Metered- Dose Pump) Tramadol HCl 25 mg 07/04/24 12:46 Tramadol Hcl (*Crx) 25 Mg Tablet PO Q6H PRN Pain Rated 4-6 Radiology Results: ITS Impressions Femur CT 07/04/24 15:05 IMPRESSION: No abscess detected. Mild subcutaneous edema in the thigh. Severe right common femoral artery stenosis. Soft Tissue Ultrasound 07/05/24 16:22 IMPRESSION: 1. Hyperechoic subcutaneous fat in right thigh, consistent with inflammation. No abscess or abnormal mass. Labs Labs: Laboratory Results - last 24 hr 07/05/24 07/05/24 07/06/24 16:25 20:13 06:30
[2024-07-06 15:48] LABS: Glucose Point of Care 169 mg/dl (65-105)
[2024-07-06 16:00] VITALS: BP 113/67; PULSE 74; RESP 20; TEMP 36.1; O2SAT 97
[2024-07-06 20:23] LABS: Glucose Point of Care 137 mg/dl (65-105)
[2024-07-06 20:30] VITALS: BP 136/59; PULSE 60; RESP 18; TEMP 36.7; O2SAT 98
[2024-07-06 21:20] VITALS: O2SAT 97
[2024-07-07] MEDS: ceFAZolin 2 GM/D5W 50 ML 2 GM/50 ML BAG IVPB (05:29)
[2024-07-07 06:13] VITALS: BP 144/65; PULSE 68; RESP 16; TEMP 36.6; O2SAT 99
[2024-07-07 06:19] LABS: Basophils Absolute Auto 0.1 K/mm3 (0.0-0.1); Basophils Percent Auto 1.4 % (0.2-1.2); Eosinophils Absolute Auto 0.3 K/mm3 (0-0.3); Eosinophils Percent Auto 3.8 % (0-4.4); Hematocrit 40.7 % (42.0-52.0); Hemoglobin 13.8 g/dL (14.0-18.0); Immature Granulocyte Absolute 0.05 K/mm3 (0.00-0.031); Immature Granulocyte Percent A 0.7 % (0-0.5); Lymphocytes Absolute Auto 2.01 K/mm3 (0.9-3.2); Lymphocytes Percent Auto 28.3 % (18.3-44.2); Mean Corpuscular HGB Conc 33.9 g/dl (32-36); Mean Corpuscular Hemoglobin 31.3 pg (26-34); Mean Corpuscular Volume 92.3 fl (80-100); Mean Platelet Volume 9.4 fl (7.4-10.4); Monocytes Absolute Auto 0.8 K/mm3 (0.1-0.6); Monocytes Percent Auto 11.1 % (2.6-8.5); Neutrophils Absolute Auto 3.9 K/mm3 (1.3-6.7); Neutrophils Percent Auto 54.7 % (45.5-73.1); Platelet Count Result 316 k/mm3 (150-375); Red Blood Count 4.41 M/mm3 (4.6-6.20); Red Cell Distribution Width 12.8 % (11.5-14.5); White Blood Count 7.1 K/mm3 (4.5-10.0)
[2024-07-07 06:37] LABS: Alanine Aminotransferase 13 U/L (6-50); Albumin Level 4.2 g/dL (3.5-5.1); Alkaline Phosphatase 98 U/L (38-126); Anion Gap 7 mmol/L (4-12); Aspartate Amino Transferase 29 U/L (17-59); Bilirubin,Total 0.5 mg/dL (0.2-1.3); Blood Urea Nitrogen 20 mg/dL (9-20); Calcium 9.7 mg/dL (8.4-10.2); Carbon Dioxide 28 mmol/L (22-30); Chloride 102 mmol/L (98-107); Estimated CRCL calculation 61 ml/min; Estimated Glomerular Filt Rate > 60; Glucose 151 mg/dL (65-110); Potassium 4.5 mmol/L (3.4-5.0); Sodium 137 mmol/L (137-145)
[2024-07-07 07:41] LABS: Glucose Point of Care 151 mg/dl (65-105)
--- NOTE | 2024-07-07 08:29 | PM.IMPN ---
Progress Note: A&P Assessment and Plan (1) Cellulitis of right lower extremity: Code(s): L03.115 - Cellulitis of right lower limb Status: Acute Assessment and Plan: Patient suspected insect bite but does not recall seeing an insect. Recently evaluated at [facility] on 07/02/24 and had I and D done. He was sent home on Clindamycin but had increasing redness and swelling. Culture 07/02 grew MSSA. Patient has an allergy to penicillin, caused a rash 50 years ago. He is unsure if he has ever taken cephalosporins Started vancomycin in the ER. WBC 6.8, CRP 2.2. Changed to Ancef today since no cross reaction to penicillins. 07/04 CT of right femur with contrast did not show any fluid collection or abscess, mild subcutaneous edema in the thigh. US fluid collection, surgery consult 07/05 Soft tissue US Hyperechoic subcutaneous fat in right thigh, consistent with inflammation. No abscess or abnormal mass PLAN Suspect abscess. Was draining overnight and stopped, but has been improving with IV ancef overnight Significant erythema and induration on exam inproving. Surgery consulted, does not need surgery at this point. Changed Vancomycin to Ancef 07/05. Discussed trial of Augmentin prior to discharge to test penicillin allergy with patient, but he did not wish to do that this admission. Could consider outpatient testing with allergy, per PCP. Likely discharge tomorrow with doxycycline or linezolid Alternate options: If he discharges with bactrim will have to monitor potassium (was hyperkalemic earlier in the year). Or could resume clindamycin but wasn't improving on it, although MSSA on staph screen blood cultures pending 07-04 no growth to date (2) Femoral artery stenosis, right: Code(s): I70.201 - Unspecified atherosclerosis of [place] arteries of extremities, right leg Status: Acute Assessment and Plan: CT of the right femur shown severe right common femoral artery stenosis, incidental finding No active signs/symptoms of ischemia Will need follow up with Vascular surgery, patient has an appointment scheduled on Friday. (3) Diabetes type 2, uncontrolled: Qualifiers: Glycemic state: with hyperglycemia Qualified Code(s): E11.65 - Type 2 diabetes mellitus with hyperglycemia Code(s): E11.65 - Type 2 diabetes mellitus with hyperglycemia Status: Acute Assessment and Plan: Blood sugars above goal in the setting of infection, ranging 150-193. Hemoglobin A1c on 10/02/2023 was 7.7. 07/04/24 7.3 Accu checks AC/HS Moderate dose SSI ordered hypoglycemic protocol in place Diabetic diet ordered Hold metformin, resume at discharge (4) Hypertension: Code(s): I10 - Essential (primary) hypertension Status: Acute Assessment and Plan: Home med: Amlodipine 5mg daily Blood pressure above goal in the setting of pain, 124-166/57-73 continue amlodipine 5mg pain control avoid changing meds for discharge since only intermittently elevated given risk of hypotension when pain controlled, defer to PCP (5) Hypothyroidism: Code(s): E03.9 - Hypothyroidism, unspecified Status: Acute Assessment and Plan: Home med: Liothyronine sodium 5mcg --Continue home med Subjective Date/time seen: 07/07/24 08:29 Interval history: No fever or chills. Induration improving overnight and during the day. Likely discharge today with oral antibiotics if improved. Has an allergy to penicillins but tolerating ancef. Review of Systems Review of Systems: All systems reviewed & are unremarkable except as noted in HPI and below Constitutional: Constitutional: Reports as per HPI and Reports no additional constitutional complaints Eyes: Eyes: Reports as per HPI and Reports no additional eye complaints ENT: Reports system reviewed and no additional complaints, except as documented and Reports as per HPI Cardiovascular: Cardiovascular: Reports as per HPI and Rep
[2024-07-07] MEDS: ASPIRIN 81 MG ENTERIC TABLET PO (09:44)
[2024-07-07] MEDS: LIOTHYRONINE SODIUM 5 MCG TABLET PO (09:44)
[2024-07-07] MEDS: DOXYCYCLINE HYCLATE 100 MG TABLET PO (09:44)
[2024-07-07] MEDS: amLODIPine BESYLATE 5 MG TABLET PO (09:44)
--- NOTE | 2024-07-07 11:13 | PM.PNGS ---
Progress Note: A&P Assessment and Plan (1) Cellulitis of right lower extremity: Code(s): L03.115 - Cellulitis of right lower limb Status: Acute Assessment and Plan: improving, cont local wound care and abx, ok to dc home c po abx and f/u 2 wks Subjective Subjective Date/Time Seen: 07/07/24 11:13 Interval history: feels good, swelling, pain decreased Review of Systems Review of Systems: All systems reviewed & are unremarkable except as noted in HPI and below Exam Const: General: cooperative, comfortable and no acute distress Resp: Auscultation: clear to auscultation bilaterally Cardio: Rate: regular rate Rhythm: regular rhythm GI: Inspection: normal to inspection Skin: Other: lateral thigh induration and cellulitis improved, no fluctuance Objective Data Vital Signs Vital Signs: Vital Signs - 24 hr 07/06/24 16:00 07/06/24 20:30 07/06/24 21:20 Temperature 36.1 C L 36.7 C Pulse Rate 74 60 Respiratory Rate 20 18 Blood Pressure 113/67 136/59 L Pulse Oximetry 97 98 97 Oxygen Delivery 07/07/24 06:13 07/07/24 09:44 Temperature 36.6 C Pulse Rate 68 Respiratory Rate 16 Blood Pressure 144/65 H Pulse Oximetry 99 Oxygen Delivery Room Air Intake/Output Intake/Output: Intake & Output 07/04/24 07/05/24 07/06/24 07/07/24 23:59 23:59 23:59 23:59 Intake Total 1490 1820 400 690 Balance 1490 1820 400 690 Meds/Results Medications: Active Medications Generic Name Dose Route Start Last Admin Trade Name Freq PRN Reason Stop Dose Admin Acetaminophen 650 mg 07/04/24 11:10 Acetaminophen 325 Mg Tablet PO Q4H PRN Mild Pain (1-3) or Fever Amlodipine Besylate 5 mg 07/05/24 09:00 07/07/24 09:44 Amlodipine Besylate 5 Mg Tablet PO 5 mg DAILY JOHNNY Administration Aspirin 81 mg 07/05/24 09:00 07/07/24 09:44 Aspirin 81 Mg Enteric Tablet PO 81 mg QAM JOHNNY Administration Calcium Carbonate 200 mg 07/04/24 21:46 Calcium Carbonate (Tums) 500 Mg (200 Mg Elemental) PO Q6H PRN Indigestion Dextrose 12.5 gm 07/04/24 12:43 Dextrose 50% 25 Gm/50 Ml Syringe IV PUSH PRN PRN Hypoglycemia Protocol Doxycycline Hyclate 100 mg 07/07/24 09:00 07/07/24 09:44 Doxycycline Hyclate 100 Mg Tablet PO 07/11/24 21:00 100 mg Q12HR JOHNNY Administration Glucagon 1 mg 07/04/24 12:43 Glucagon For Inj 1 Mg Vial IM PRN PRN Hypoglycemia Protocol Glucose 15 gm 07/04/24 12:43 Glucose Oral Gel 15 Gm Of Glucse In 37.5 Gm Tube PO PRN PRN Hypoglycemia Protocol Dextrose 1,000 mls @ 100 mls/hr 07/04/24 12:43 Dextrose 5% 1,000 Ml IVPB PRN PRN Hypoglycemia Protocol Insulin Aspart 3 - 6 units 07/04/24 17:00 07/07/24 09:07 Insulin Aspart (*Bkc) 100 Units/Ml SUB-Q Not Given TIDWM JOHNNY Protocol Insulin Aspart 1 - 3 units 07/04/24 21:00 07/06/24 21:18 Insulin Aspart (*Bkc) 100 Units/Ml SUB-Q Not Given HS JOHNNY Protocol Liothyronine Sodium 5 mcg 07/05/24 09:00 07/07/24 09:44 Liothyronine Sodium 5 Mcg Tablet PO 5 mcg DAILY JOHNNY Administration Nonformulary Drug ( 2 pump 07/05/24 09:00 07/07/24 09:44 Testosterone Residential TOPICAL 08/04/24 08:59 Not Given Micronized Liquid QAM JOHNNY 100mg/Gm Metered- Dose Pump) Tramadol HCl 25 mg 07/04/24 12:46 Tramadol Hcl (*Crx) 25 Mg Tablet PO Q6H PRN Pain Rated 4-6 Radiology Results: ITS Impressions Femur CT 07/04/24 15:05 IMPRESSION: No abscess detected. Mild subcutaneous edema in the thigh. Severe right common femoral artery stenosis. Soft Tissue Ultrasound 07/05/24 16:22 IMPRESSION: 1. Hyperechoic subcutaneous fat in right thigh, consistent with inflammation. No abscess or abnormal mass. Labs Labs: Laboratory Results - last 24 hr 07/06/24 07/06/24 07/06/24 08:05 11:47 15:43 WBC RBC Hgb Hct MCV MCH MCH
[2024-07-07 11:39] LABS: Glucose Point of Care 194 mg/dl (65-105)
--- NOTE | 2024-07-07 11:54 | PM.DS ---
DS: Admitting Diagnosis Discharge Date 07/07/2024 Admitting Diagnosis Cellulitis of right lower extremity DS: Discharge Diagnosis Discharge Diagnosis (1) Cellulitis of right lower extremity: Code(s): L03.115 - Cellulitis of right lower limb Status: Acute Assessment and Plan: Cellulitis improving. CT and US negative for abscess. No indication for surgery at this time. Changed Vancomycin to Ancef 07/05. Discussed trial of Augmentin prior to discharge to test penicillin allergy with patient, but he did not wish to do that this admission. Could consider outpatient testing with allergy, per PCP. Discharge home on linezolid times 10 days. (2) Femoral artery stenosis, right: Code(s): I70.201 - Unspecified atherosclerosis of [place] arteries of extremities, right leg Status: Acute Assessment and Plan: CT of the right femur shown severe right common femoral artery stenosis, incidental finding No active signs/symptoms of ischemia Will need follow up with Vascular surgery, patient has an appointment scheduled on Friday. (3) Diabetes type 2, uncontrolled: Qualifiers: Glycemic state: with hyperglycemia Qualified Code(s): E11.65 - Type 2 diabetes mellitus with hyperglycemia Code(s): E11.65 - Type 2 diabetes mellitus with hyperglycemia Status: Acute Assessment and Plan: Hemoglobin A1c on 10/02/2023 was 7.7. 07/04/24 7.3 Accu checks AC/HS Moderate dose SSI ordered hypoglycemic protocol in place Diabetic diet ordered Hold metformin, resume at discharge (4) Hypertension: Code(s): I10 - Essential (primary) hypertension Status: Acute Assessment and Plan: Blood pressure above goal in the setting of pain, 124-166/57-73 continue amlodipine 5mg pain control avoid changing meds for discharge since only intermittently elevated given risk of hypotension when pain controlled, defer to PCP (5) Hypothyroidism: Code(s): E03.9 - Hypothyroidism, unspecified Status: Acute Assessment and Plan: Home med: Liothyronine sodium 5mcg --Continue home med DS: Summary Hospital Course Reason for hospitalization: Cellulitis Hospital Course: 74 year old male with a significant past medical history of multiple CVA's, type 2 diabetes mellitus, hypertension, hypothyroidism, 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 Patient originally presented to the [facility] on 07/02/24 with abscess from an insect bite. At the [facility] he underwent an I and D of the abscess and successfully had 15-20ml of purulent drainage expressed. A culture was sent at that time. He was sent home with a prescription for clindamycin 450 mg daily. Patient states the redness and tenderness has worsened over the last two days despite oral antibiotics since . He denies any fever, chills, nausea, vomiting, diarrhea, abdominal pain, chest pain, or shortness of breath. He endorses tenderness and redness at the site. He presents today for further evaluation. Work up in the ER included labs which shown a normal WBC of 6.8, Hgb 12.7, Na+ 135, CRP 2.2. Wound cultures from 07/02/24 visit showing staphylococcus aureus on preliminary read. Blood cultures were obtained today. CT of the femur with contrast did not show any abscess or fluid collection, only shown mild subcutaneous edema in the thigh, severe right common femoral artery stenosis. Patient was given a dose of Tylenol and Vancomycin while in the ER. Changed to Ancef since no cross reaction to penicillins. 07/04 CT of right femur with contrast did not show any fluid collection or abscess, mild subcutaneous edema in the thigh. US fluid collection, surgery consult with no recommendations for surgical procedure. 07/05 Soft tissue US Hyperechoic subcutaneous fat in right thigh, consistent with inflammation. No abscess or abnormal mass. CT of the right femur jeni
[2024-07-07 15:51] VITALS: BP 135/56; PULSE 59; RESP 18; TEMP 36.4; O2SAT 100
--- NOTE | 2024-07-12 08:04 | PC.NURSE ---
Blood cx are negative.
== END 2024-07-07 15:50 | disposition home or self-care (01) ==
LOC: ANHED 11:30 → ANH3MEDSUR 11:39
PROVIDERS: Nurse Practitioner Acute Care; Admitting Provider General Practice; Emergency Provider Emergency Medicine; PCP Family Medicine; Visit Provider Nurse Practitioner Gerontology
DX: L03.115 Cellulitis of right lower limb (principal); E11.65 Type 2 diabetes mellitus with hyperglycemia; E11.36 Type 2 diabetes mellitus with diabetic cataract; H26.9 Unspecified cataract; E11.51 Type 2 diabetes mellitus with diabetic peripheral angiopathy without gangrene; I70.201 Unspecified atherosclerosis of native arteries of extremities, right leg; I25.10 Atherosclerotic heart disease of native coronary artery without angina pectoris; I10 Essential (primary) hypertension; E03.9 Hypothyroidism, unspecified; G47.33 Obstructive sleep apnea (adult) (pediatric); Z88.0 Allergy status to penicillin; I25.2 Old myocardial infarction; Z95.1 Presence of aortocoronary bypass graft; Z79.85 Long-term (current) use of injectable non-insulin antidiabetic drugs; Z79.82 Long term (current) use of aspirin; Z79.890 Hormone replacement therapy; Z79.899 Other long term (current) drug therapy; Z87.891 Personal history of nicotine dependence; Z86.73 Personal history of transient ischemic attack (TIA), and cerebral infarction without residual deficits; Z99.89 Dependence on other enabling machines and devices
CPT/HCPCS: 36415; 73701; 76882; 80053; 82948; 83036; 83605; 85025; 86140; 87040; 96365; 96367; 99285; A9270; G0378; J0690; J3370

== ENCOUNTER 2025-02-05 09:12 | Emergency (ER) | payer OTHER, SELFPAY ==
--- NOTE | 2025-02-05 09:24 | ED_ITS ---
HPI - Back Pain/Injury General Chief Complaint: Back Pain/Injury Stated Complaint: Back Pain Time Seen by Provider: 02/05/25 09:24 Source: patient, RN notes reviewed and old records reviewed Mode of arrival: ambulatory Limitations: no limitations History of Present Illness HPI Narrative: 74 year old male presents to [facility] care with complaints of bending over and picking something up in the garage and noted pain across his lower back and spasms. Patient reports that it felt like his lower back just locked up and had spasms in the lower back also. Patient reports no difficulty passing his urine or stools and denies any saddle paraesthesia. Patient reports no radiation of pain to his legs or feet and no numbness or tingling to his legs or feet. Patient reports that he has taken Tylenol, did take one dose of Aleve and topical CBD ointment to his back Patient reports that he has had 5 vessel open heart bypass surgery and he was told he is not suppose to take prednisone or Nsaid medications. MD elicited complaint: back pain Onset (ago): day(s) (day 2 of symptoms) Pain scale (0-10): 8 Treatments prior to arrival: NSAIDS (took one dose of Aleve), acetaminophen and other (CBD ointment to back) Work related injury: No Related Data Home Medications Medication Instructions Recorded Confirmed Last Taken Type aspirin 81 mg capsule 81 mg PO DAILY 08/14/21 02/05/25 07/04/24 History liothyronine 5 mcg tablet 5 mcg PO DAILY 07/02/24 02/05/25 07/04/24 History amlodipine 5 mg tablet 5 mg PO DAILY 07/04/24 02/05/25 07/04/24 History empagliflozin 25 mg tablet 25 mg PO DAILY 02/05/25 02/05/25 Unknown History (Jardiance) tirzepatide 7.5 mg/0.5 mL 7.5 mg subcut WEEKLY 02/05/25 02/05/25 Unknown History subcutaneous pen injector (Mounjaro) Allergies Allergy/AdvReac Type Severity Reaction Status Date / Time Penicillins Allergy Intermediate Unknown Verified 02/05/25 09:39 adhesive tape Allergy Hives Verified 02/05/25 09:39 morphine Allergy Vomiting Verified 02/05/25 09:39 rosuvastatin (From Crestor) AdvReac Irritable Verified 02/05/25 09:39 Review of Systems Review of Systems: CONSTITUTIONAL: Denies fever, chills, or sweats. EYES: Denies visual changes, redness, or discharge. ENT: Denies rhinorrhea, congestion, sore throat, or otalgia. CARDIOVASCULAR: Denies chest pain, palpitations, or edema. RESPIRATORY: Denies cough or dyspnea. GASTROINTESTINAL: Denies abdominal pain, nausea, vomiting, or diarrhea. GENITOURINARY: Denies dysuria or hematuria. SKIN: Denies rash or itching. MUSCULOSKELETAL: reports lumbar back pain,no joint pain, or myalgia. NEUROLOGIC: Denies headache, numbness, or weakness. PSYCHIATRIC: Denies anxiety or depression. All systems reviewed & are unremarkable except as noted in HPI and below PMFSH Past Medical History Medical History Myocardial infarct Hypothyroidism Hypertension Toenail deformity BMI 27.0-27.9,adult BMI 28.0-28.9,adult Screening for prostate cancer Edema BMI 28.0-28.9,adult Hemoglobin A1C between 7% and 9% indicating borderline diabetic control reported by pt, 07/18/21 to be 7.1 History of GI bleed BMI 25.0-25.9,adult BMI 26.0-26.9,adult Screening for prostate cancer Carotid stenosis History of CVA (cerebrovascular accident) History of alcoholism Type 2 diabetes mellitus without complications History of cataract Surgical History Surgical History H/O heart bypass surgery History of surgery on left wrist grafting of scaphoid fracture around 35 years ago Right carpal tunnel syndrome right carpal tunnel release History of open heart surgery CABG x5v History of carotid endarterectomy History of rotator cuff surgery History of knee surgery Family History Family History Father Cancer Pulmonary disease Mother High cholesterol Hypertension Social History Social History Social History: Lives with . Semi-retired. 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 Years smoked: 10 Smoking status: Former smoker Alcohol intake: former Substance use: never Do You Feel Safe in your Home?: Yes Lack of Transportation: No Lack of Food: Never True Current Housing: I Have Housing Concerned About Future Housing: No Difficulty Paying Gas/Electric Bills: No Difficulty Paying for Meds: No Currently Unemployed: No Education: High School Diploma/GED Difficulty w/ Childcare or Family Care: No Occupation/Education: retired Gender identity (if verbalized by the patient): Male Spiritual care concerns: No Comments At time of signature, agree with nursing past medical, surgical, social and family history. There is no relevant family history pertinent to the presenting complaint Exam Narrative: GENERAL: Well-appearing, well-nourished, and in no acute distress. HEAD: Normocephalic, atraumatic. EYES: PERRLA and EOMI. ENT: Nares clear, no rhinorrhea or epistaxis. Mucous membranes moist. NECK: Supple.no lymphadenopathy CHEST: Clear to auscultation. No respiratory distress.SAO2 100% on room air HEART: Regular rate and rhythm. No murmur heard. Normal peripheral pulses. ABDOMEN: Soft, nontender, nondistended, normal active bowel sounds. EXTREMITIES: Normal range of motion. No edema. Positive for pain to the lumbar spine region with no radiation of pain to buttocks of legs, Patient denies any tingling or numbness to his legs or feet. reports spasming in his lower back. Patient reports no saddle paraesthesia or any difficulty passing urine or stool, positive pedal pulses of adequate quality. SKIN: Warm, dry, no rash. NEURO: No focal deficits. Alert and oriented x3. Course Course Emergency Course: Patient is aware of diagnosis, understands and agrees to treatment plan. Anticipatory guidance given. Patient agrees to follow-up as directed and is a andrews of reasons to seek care at the emergency department. Portions of this record may have been created with voice recognition software Level of Care: Express Care Visit Vital Signs Vital signs: Reviewed MDM - Back Pain/Injury Differential Diagnosis Differential diagnosis: Likely lumbar radiculopathy, strain of lumbar region and other (lumbar back pain, muscle spasms) Medical Records Attestation: I reviewed the patient's medical records. Critical Care Time Critical Care Time Critical Care Time: No Discharge Plan Discharge Clinical Impression: Lumbar back pain, Back muscle spasm Patient Disposition: Home Condition: Stable Instructions: Back Pain (ED) Additional Instructions: Ice and heat to the area for 20-30 minutes Gentle stretching exercises Gentle massage Caution with lifting, bending, stooping, twisting Avoid pushing, pulling take muscle relaxants as directed--caution drowsiness and no driving or alcohol Tylenol arthritis may have no more than 2 tabs 3 times daily can only have 4000mg of Tylenol daily. He may take the muscle relaxant and anti-inflammatory at the same time Follow-up with your PCP if not improving in 3-5 days set follow up appointment with Dr Whitaker for next week for follow up Topical ointment to back such as Bengay with Lidocaine, Salonpas patches to back or Biofreeze ointment Patient Language: Faro[place] Prescriptions: New cyclobenzaprine 5 mg tablet 5 mg PO TID Qty: 20 0RF Rx Instructions: may not drive while taking, if you are home and will not be going anywhere you can take No Action Jardiance 25 mg tablet 25 mg PO DAILY Mounjaro 7.5 mg/0.5 mL pen injector 7.5 mg SUBCUT WEEKLY liothyronine 5 mcg tablet 5 mcg PO DAILY (DME) pen needle, diabetic [BD Ultra-Fine Wendy Pen Needle] 32 gauge x 5/32 needle See Rx Instructions .Route Qty: 100 5RF Rx Instructions: As directed QAC and QHS and lantus QHS aspirin 81 mg Capsule 81 mg PO DAILY amlodipine 5 mg tablet 5 mg PO DAILY (DME) blood-glucose meter [FreeStyle [place] Lite] Kit See Rx Instructions .Route Qty: 1 0RF Rx Instructions: As directed for diabetes (DME) lancets [FreeStyle Lancets] 28 gauge misc See Rx Instructions .Route Qty: 100 0RF Rx Instructions: check glucose bid for diabetes (DME) FreeStyle Lite Strips Strip See Rx Instructions .Route Qty: 100 2RF Rx Instructions: Check glucose bid for diabetes Follow-up/Referrals: Niall Whitaker MD [Primary Care Provider] - Time of Disposition: 10:13 Quality [place] Coma Scale Eyes: Open Verbal: Oriented and Alert Motor: Follows Commands [place] Coma Total Score: 15
[2025-02-05 09:25] VITALS: BP 167/65; PULSE 61; RESP 14; TEMP 36.4; O2SAT 100
== END 2025-02-05 10:20 | disposition home or self-care (01) ==
PROVIDERS: Emergency Provider Registered Nurse; PCP Family Medicine
DX: M54.50 Low back pain, unspecified (principal); M62.830 Muscle spasm of back; I10 Essential (primary) hypertension; E11.9 Type 2 diabetes mellitus without complications; Z79.84 Long term (current) use of oral hypoglycemic drugs; Z79.85 Long-term (current) use of injectable non-insulin antidiabetic drugs; E03.9 Hypothyroidism, unspecified; Z86.73 Personal history of transient ischemic attack (TIA), and cerebral infarction without residual deficits; I25.2 Old myocardial infarction; Z95.1 Presence of aortocoronary bypass graft; Z87.891 Personal history of nicotine dependence; Z79.82 Long term (current) use of aspirin
CPT/HCPCS: 99213; G0463

== ENCOUNTER 2025-09-18 08:12 | Emergency (ER) | payer OTHER, SELFPAY ==
--- NOTE | 2025-09-18 08:13 | ED.URI ---
HPI - URI/Sore Throat General Chief Complaint: Upper Respiratory Infection Stated Complaint: flu symptoms Time Seen by Provider: 09/18/25 08:13 Source: patient Mode of arrival: ambulatory Limitations: no limitations History of Present Illness HPI Narrative: patient is a 75-year-old male who presents with body aches and sore throat this morning. Symptoms started yesterday. Patient concerned for flu but does not want to be tested. Is asking if symptoms are consistent with flu. Denies any fever, nausea, vomiting, diarrhea, congestion. Patient has taken Tylenol and used [employer] Related Data Home Medications ?Medication ?Instructions ?Recorded ?Confirmed ?Last Taken ?Type aspirin 81 mg capsule 81 mg PO DAILY 08/14/21 09/18/25 07/04/24 History liothyronine 5 mcg tablet 5 mcg PO DAILY 07/02/24 09/18/25 07/04/24 History amlodipine 5 mg tablet 5 mg PO DAILY 07/04/24 09/18/25 07/04/24 History empagliflozin 25 mg tablet 25 mg PO DAILY 02/05/25 09/18/25 Unknown History (Jardiance) tirzepatide 7.5 mg/0.5 mL 7.5 mg subcut WEEKLY 02/05/25 09/18/25 Unknown History subcutaneous pen injector (Mounjaro) Allergies Allergy/AdvReac Type Severity Reaction Status Date / Time Penicillins Allergy Intermediate Unknown Verified 09/18/25 08:15 adhesive tape Allergy Hives Verified 09/18/25 08:15 morphine Allergy Vomiting Verified 09/18/25 08:15 rosuvastatin (From Crestor) AdvReac Irritable Verified 09/18/25 08:15 Review of Systems Review of Systems: All systems reviewed & are unremarkable except as noted in HPI and below Constitutional: Constitutional: Denies chills, Denies fatigue, Denies fever(s), Denies headache(s), Denies malaise and Denies weakness Eyes: Eyes: Denies blurry vision, Denies itchy eyes and Denies loss of vision ENT: Denies otalgia, Denies headache(s), Denies nasal congestion, Denies sinus pain and Reports sore throat Cardiovascular: Cardiovascular: Denies chest pain, Denies irregular heart rhythm and Denies dyspnea Respiratory: Respiratory: Denies cough and Denies dyspnea Gastrointestinal: Gastrointestinal: Denies abdominal pain, Denies diarrhea, Denies nausea and Denies vomiting Musculoskeletal: Musculoskeletal: Denies back pain, Reports myalgias and Denies arthralgias Integumentary/Breasts: Skin/Breast: Denies pruritus and Denies rash Neurologic: Denies headache(s), Denies loss of vision and Denies weakness Psychiatric: Psychiatric: Reports no additional psychiatric complaints Endocrine: Endocrine: Denies fatigue Allergic/Immunologic: Allergic/Immunologic: Denies itchy eyes PMFSH Past Medical History Medical History Myocardial infarct Hypothyroidism Hypertension Toenail deformity BMI 27.0-27.9,adult BMI 28.0-28.9,adult Screening for prostate cancer Edema BMI 28.0-28.9,adult Hemoglobin A1C between 7% and 9% indicating borderline diabetic control reported by pt, 07/18/21 to be 7.1 History of GI bleed BMI 25.0-25.9,adult BMI 26.0-26.9,adult Screening for prostate cancer Carotid stenosis History of CVA (cerebrovascular accident) History of alcoholism Type 2 diabetes mellitus without complications History of cataract Surgical History Surgical History H/O heart bypass surgery History of surgery on left wrist grafting of scaphoid fracture around 35 years ago Right carpal tunnel syndrome right carpal tunnel release History of open heart surgery CABG x5v History of carotid endarterectomy History of rotator cuff surgery History of knee surgery Family History Family History Father Cancer Pulmonary disease Mother High cholesterol Hypertension Social History Social History Social History: Lives with . Semi-retired. 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 Years smoked: 10 Smoking status: Former smoker Alcohol intake: former Substance use: never Lack of Transportation: No Lack of Food: Never True Current Housing: I Have Housing Concerned About Future Housing: No Difficulty Paying Gas/Electric Bills: No Difficulty Paying for Meds: No Currently Unemployed: No Education: High School Diploma/GED Difficulty w/ Childcare or Family Care: No Occupation/Education: retired Gender identity (if verbalized by the patient): Male Spiritual care concerns: No Comments At time of signature, agree with nursing past medical, surgical, social and family history. There is no relevant family history pertinent to the presenting complaint. Exam Const: General: cooperative, healthy appearing, comfortable, no acute distress and well nourished Nutritional Appearance: well nourished Orientation/consciousness: patient oriented x3 Limitations: no limitations HENMT: Head: normal to inspection, normocephalic and atraumatic Ears: hearing grossly normal bilaterally, external ears normal, TM's normal bilaterally, EAC's normal and no periauricular adenopathy Face/Nose/Sinus: Normal external nose present, Normal nasal mucous membranes and turbinates present, normal facial exam, sinuses nontender and face symmetric Face and sinus: normal facial exam, sinuses nontender and face symmetric Mouth: Yes Normal oral and palatal mucosa present, Yes lip normal, Yes tongue normal, Yes Normal salivary glands and ducts present, Yes oropharynx normal and Yes moist mucous membranes Teeth and gingiva: dentition normal Throat: posterior oropharynx normal, tonsils normal and uvula midline Eyes: General: appearance normal, both eyes and all related structures Alignment and Position: alignment normal and position normal Periorbital: periorbital findings normal Eyelids: eyelids normal Pupils: Equal, round and reactive pupils present Neck: Neck: normal visual inspection, full ROM, no lymphadenopathy and supple Chest: Chest palpation & inspection: normal inspection of the chest and normal palpation of entire chest wall Resp: Effort & Inspection: normal respiratory effort and able to speak in complete sentences Auscultation: clear to auscultation bilaterally, no crackles, no rales, no rhonchi and no wheezes Cardio: Rate: regular rate Rhythm: regular rhythm Heart sounds: S1 normal heart sound present and S2 normal heart sound present GI: Inspection: normal to inspection Skin: General skin exam: normal color and no rashes or lesions noted Neuro: General: patient oriented x3 and moves all extremities Cranial nerves: Yes Equal, round and reactive pupils present Speech: normal speech Gait exam (Neuro): Normal gait present Extrem: General: normal to inspection, full ROM and no edema Psych: Appearance: grossly normal and well kempt Mental Status: mental status grossly normal Speech and movement: Normal speech and movement present Affect: normal affect Attitude: cooperative Thought process: Normal thought process present Course Course Emergency Course: Patient is aware of diagnosis, understands and agrees to treatment plan. Anticipatory guidance given. Patient agrees to follow-up as directed and is aware of reasons to seek care at the emergency department. Portions of this record may have been created with voice recognition software Level of Care: Express Care Visit Vital Signs Vital signs: Vital Signs Temperature 37.3 C 09/18/25 08:20 Pulse Rate 73 09/18/25 08:20 Respiratory Rate 20 09/18/25 08:20 Blood Pressure 112/52 L 09/18/25 08:20 Pulse Oximetry 99 09/18/25 08:20 Oxygen Delivery Room Air 09/18/25 08:20 Temperature 37.3 C 09/18/25 08:20 Pulse Rate 73 09/18/25 08:20 Respiratory Rate 20 09/18/25 08:20 Blood Pressure 112/52 L 09/18/25 08:20 Pulse Oximetry 99 09/18/25 08:20 Oxygen Delivery Room Air 09/18/25 08:20 MDM MDM Narrative Medical decision making narrative: patient refusing COVID and flu testing. Patient states my son was swabbed twice and got COVID twice and I am not doing it Symptoms likely viral in etiology. Pt well hydrated appearing, in no respiratory distress, hemodynamically stable. Recommend supportive care. The patient is stable at time of discharge the clinical impression was discussed and the patient was given the opportunity to ask questions, which were addressed as completely as possible given the information available at present. Anticipatory guidance and return to care precautions were discussed and the importance of primary care follow-up was stressed and encouraged. The patient voiced understanding of the plan, indications to return, and the need for follow-up. Exam findings show no acute concerns or changes Patient is appropriate for outpatient treatment and follow-up. Differential Diagnosis Differential Diagnosis: Differential diagnosis considered: Montoya virus, strep pharyngitis, allergic rhinitis, upper respiratory tract infection, sinusitis, rhinosinusitis, nasopharyngitis. viral pharyngitis, otitis media, otitis externa, otitis effusion, foreign body, cerumen impaction, viral syndrome, and influenza. Medical Records I have reviewed the following patient records and this information was taken into consideration when formulating the assessment and plan.: previous clinic visits Discharge Plan Discharge Clinical Impression: Viral infection Patient Disposition: Home Condition: Stable Instructions: Viral Syndrome (ED) Additional Instructions: Your symptoms are due to a viral illness, which is not treated with antibiotics. Viral symptoms can be present for up to a few weeks. -For fever/pain, you may take: Tylenol 650-1000mg by mouth every 4-6 hours. Do not exceed 4000mg in 24 hours. 8 AM: Tylenol 2 PM: Tylenol 8 PM: Tylenol 2 AM: Tylenol -Antihistamine medication such as Benadryl/Zyrtec at night and Claritin/Loraine during the day can help improve symptoms. -Use Flonase twice a day for 5 days then daily to help reduce the inflammation and dry up your sinuses. -You can also use Sudafed behind the pharmacy counter(12 or 24 hour). Be sure to drink plenty of water with these medications at least 8 ounces with every dose and it is important to drink 8 to 10 glasses of water per day. Water is a natural decongestant -Eat and drink things that are easy to swallow, like tea or soup, or popsicles. -Oral rinses such as: Salt water gargles and/or may use topical anesthetic (eg. Chloraseptic spray) or lozenges to relieve dryness or throat pain). -Frequent hand washing or hand hardware test engineer is one of the best ways to prevent spread of infection. -Using a vaporizer or humidifier at night will also help thin secretions and help with coughing up phlegm. -Follow up with primary care provider in 3-5 days if condition is not improving - For new or worsening symptoms go directly to the nearest ER Patient Language: Turkmen Prescriptions: No Action Jardiance 25 mg tablet 25 mg PO DAILY Mounjaro 7.5 mg/0.5 mL pen injector 7.5 mg SUBCUT WEEKLY liothyronine 5 mcg tablet 5 mcg PO DAILY (DME) pen needle, diabetic [BD Ultra-Fine Wendy Pen Needle] 32 gauge x needle See Rx Instructions .Route Qty: 100 5RF Rx Instructions: As directed QAC and QHS and lantus QHS aspirin 81 mg Capsule 81 mg PO DAILY amlodipine 5 mg tablet 5 mg PO DAILY (DME) blood-glucose meter [FreeStyle [place] Lite] Kit See Rx Instructions .Route Qty: 1 0RF Rx Instructions: As directed for diabetes (DME) lancets [FreeStyle Lancets] 28 gauge misc See Rx Instructions .Route Qty: 100 2RF Rx Instructions: check glucose bid for diabetes (DME) FreeStyle Lite Strips Strip See Rx Instructions .Route Qty: 100 2RF Rx Instructions: Check glucose bid for diabetes Follow-up/Referrals: Chevy,TED Álvarez [Primary Care Provider, Unknown] - 3 Days Time of Disposition: 08:27
[2025-09-18 08:20] VITALS: BP 112/52; PULSE 73; RESP 20; TEMP 37.3; O2SAT 99
== END 2025-09-18 08:31 | disposition home or self-care (01) ==
PROVIDERS: Emergency Provider Nurse Practitioner Family; PCP Nurse Practitioner
DX: B34.9 Viral infection, unspecified (principal); I10 Essential (primary) hypertension; E03.9 Hypothyroidism, unspecified; I25.2 Old myocardial infarction; E11.9 Type 2 diabetes mellitus without complications; Z79.84 Long term (current) use of oral hypoglycemic drugs; Z79.85 Long-term (current) use of injectable non-insulin antidiabetic drugs; Z86.73 Personal history of transient ischemic attack (TIA), and cerebral infarction without residual deficits; Z95.1 Presence of aortocoronary bypass graft; Z79.82 Long term (current) use of aspirin
CPT/HCPCS: 99211; G0463